=== PATIENT | male | born 1950 | race Caucasian/White ===

== ENCOUNTER 2017-04-28 01:35 | Emergency (ER) | payer MEDICARE, BC ==
[2017-04-28 02:11] VITALS: BP 159/96
--- NOTE | 2017-04-28 02:40 | EDM.PDOC ---
ED HPI GENERAL MEDICAL PROBLEM - General Chief Complaint: Cardiovascular Problem Stated Complaint: RAPID HEART RATE Time Seen by Provider: 04/28/17 02:36 Source of Information: Reports: Patient History Limitations: Reports: No Limitations - History of Present Illness INITIAL COMMENTS - FREE TEXT/NARRATIVE: History of present illness: [58-year-old male presenting concerned about his blood pressure. His blood pressure machine at home as long the pain around her wrist that was running high he did it several times became Anxious and then came in he doesn't have any complaints of chest pain or shortness of breath but is worried about his blood pressure. Ears blood pressure reading is acceptable is just on hydrochlorothiazide 12.5 mg per day and he has an appointment with his family care doctor who is an internal medicine doctor next week in [place]. He had been on atenolol as well but that was stopped because he does have some underlying asthma in his breathing has gotten better since the atenolol was stopped.] Review of systems: As per history of present illness and below otherwise all systems reviewed and negative. Past medical history: As per history of present illness and as reviewed below otherwise noncontributory. Surgical history: As per history of present illness and as reviewed below otherwise noncontributory. Social history: No reported history of drug or alcohol abuse. Family history: As per history of present illness and as reviewed below otherwise noncontributory. Physical exam: HEENT: Atraumatic, normocephalic, pupils reactive, negative for conjunctival pallor or scleral icterus, mucous membranes moist, throat clear, neck supple, nontender, trachea midline. Lungs: Clear to auscultation, breath sounds equal bilaterally, chest nontender. Heart: S1S2, regular, negative for clicks, rubs, or JVD. Abdomen: Soft, nondistended, nontender. Negative for masses or hepatosplenomegaly. Negative for costovertebral tenderness. Pelvis: Stable nontender. Genitourinary: Deferred. Rectal: Deferred. Extremities: Atraumatic, negative for cords or calf pain. Neurovascular unremarkable. Neuro: Awake, alert, oriented. Cranial nerves II through XII unremarkable. Cerebellum unremarkable. Motor and sensory unremarkable throughout. Exam nonfocal. Diagnostics: [] Therapeutics: [] Impression: [Hypertension] Plan: [Patient was reassured that his blood pressure was not in a dangerous range and that he can just rest assured that he'll be fine tonight. I did advise him to take his blood pressure machine into the clinic when he sees his doctor and check his readings against the ones that they get their and if they do not correlate perhaps he needs a different machine which they can help him with.] Definitive disposition and diagnosis as appropriate pending reevaluation and review of above. denies pain Pain Score (Numeric/FACES): 0 - Related Data Allergies Allergy/AdvReac Type Severity Reaction Status Date / Time atorvastatin calcium Allergy Rash Verified 11/11/15 18:07 [From Lipitor] fish oil Allergy Stomach Verified 11/11/15 18:07 Ache Latex, Natural Rubber Allergy Rash Verified 04/28/17 02:15 niacin Allergy Rash Verified 11/11/15 18:07 rosuvastatin calcium Allergy Rash Verified 11/11/15 18:07 [From Crestor] tamsulosin HCl [From Flomax] Allergy Rash Verified 11/11/15 18:07 Home Meds: Home Meds Allopurinol [Allopurinol] 200 mg PO DAILY 10/06/15 [History] Aspirin [Low Dose Aspirin EC] 162 mg PO DAILY 10/06/15 [History] Cetirizine HCl [Allergy Relief] 10 mg PO DAILY 10/06/15 [History] Cholecalciferol (Vitamin D3) [Vitamin D3] 2,000 unit PO DAILY 10/06/15 [History] Clotrimazole [Clotrimazole 1%] 15 gm .XX ASDIRECTED PRN 10/06/15 [History] LORazepam 1 mg PO ASDIRECTED PRN 10/06/15 [History] Nitroglycerin 0.4 mg SL ASDIRECTED PRN 10/06/15 [History] Omeprazole 20 mg PO DAILY 10/06/15 [History] Pravastatin [Pravachol] 20 mg PO BEDTIME 10/06/15 [History] Ubidecarenone [COQ-10] 60 mg PO DAILY 10/06/15 [History] hydrOXYzine HCl [Atarax] 25 mg PO Q6H PRN 10/06/15 [History] Acetaminophen [Tylenol Arthritis Pain] 1,300 mg PO ASDIRECTED 04/28/17 [History] Hydrochlorothiazide [Hydrochlorothiazide] 12.5 mg PO DAILY 04/28/17 [History] Ibuprofen 200 mg PO ASDIRECTED PRN 04/28/17 [History] Past Medical History HEENT History: Reports: Impaired Vision Cardiovascular History: Reports: CAD, High Cholesterol, Hypertension, [place], Stents Respiratory History: Reports: Asthma Gastrointestinal History: Reports: None Genitourinary History: Reports: Prostate Disorder, Retention, Urinary Other Genitourinary History: prostatitis Musculoskeletal History: Reports: Arthritis Other Musculoskeletal History: l shoulder surgery crushed socked 1985. 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 Psychiatric History: Reports: Anxiety Endocrine/Metabolic History: Reports: Obesity/BMI 30+ Hematologic History: Reports: None Immunologic History: Reports: None Oncologic (Cancer) History: Reports: None Dermatologic History: Reports: Urticaria - Infectious Disease History Infectious Disease History: Reports: Chicken Pox, Measles, Mumps, Rubella - Past Surgical History Head Surgeries/Procedures: Reports: None Cardiovascular Surgical History: Reports: Coronary Artery Stent Respiratory Surgical History: Reports: None GI Surgical History: Reports: Colonoscopy, Hernia, Inguinal, Polypectomy Male Surgical History: Reports: Vasectomy, Other (See Below) Endocrine Surgical History: Reports: None Neurological Surgical History: Reports: None Musculoskeletal Surgical History: Reports: Shoulder Surgery, Other (See Below) Other Musculoskeletal Surgeries/Procedures:: club foot surgically repaired right foot Oncologic Surgical History: Reports: None Social & Family History - Tobacco Use Smoking Status *Q: Never Smoker Second Hand Smoke Exposure: No - Caffeine Use Caffeine Use: Reports: None - Recreational Drug Use Recreational Drug Use: No ED ROS GENERAL - Review of Systems Review Of Systems: ROS reveals no pertinent complaints other than HPI. ED EXAM, GENERAL - Physical Exam Exam: See Below Course - Vital Signs Last Recorded V/S: Last Vital Signs Temp 37 C 04/28/17 02:10 Pulse 73 04/28/17 02:10 Resp 16 04/28/17 02:10 BP 159/96 H 04/28/17 02:10 Pulse Ox 96 04/28/17 02:10 Departure - Departure Time of Disposition: 02:39 Disposition: Home, Self-Care 01 Condition: Good Clinical Impression: Hypertension Qualifiers: Hypertension type: unspecified Qualified Code(s): I10 - Essential (primary) hypertension Referrals: PCP,None [Primary Care Provider] - Additional Instructions: I just want to remind you to take your blood pressure machine with you in to the clinic when you see your doctor and check your readings against the ones there getting to make sure that they correlate and if not perhaps a different machine would be better for you.
== END 2017-04-28 02:59 | disposition home or self-care (01) ==
LOC: JP.ED 01:35
DX: I10 Essential (primary) hypertension (principal); I25.2 Old myocardial infarction; I25.10 Atherosclerotic heart disease of native coronary artery without angina pectoris; E78.00 Pure hypercholesterolemia, unspecified; J45.909 Unspecified asthma, uncomplicated; M19.90 Unspecified osteoarthritis, unspecified site; F41.9 Anxiety disorder, unspecified; E66.9 Obesity, unspecified; Z68.30 Body mass index [BMI] 30.0-30.9, adult; Z95.5 Presence of coronary angioplasty implant and graft; Z98.52 Vasectomy status; Z98.890 Other specified postprocedural states; Z79.82 Long term (current) use of aspirin; Z79.899 Other long term (current) drug therapy; Z88.8 Allergy status to other drugs, medicaments and biological substances; Z91.018 Allergy to other foods; Z91.040 Latex allergy status
CPT/HCPCS: 99283

== ENCOUNTER 2017-09-03 07:14 | Emergency (ER) | payer MEDICARE, BC ==
[2017-09-03 07:28] VITALS: BP 172/77
--- NOTE | 2017-09-03 07:54 | EDM.PDOC ---
ED HPI GENERAL MEDICAL PROBLEM - General Chief Complaint: ENT Problem Stated Complaint: BLOODY NOSE Time Seen by Provider: 09/03/17 07:40 Source of Information: Reports: Patient History Limitations: Reports: No Limitations - History of Present Illness INITIAL COMMENTS - FREE TEXT/NARRATIVE: 67-year-old male with 2 episodes of right-sided epistaxis this morning. No trauma. Bleeding has again resolved. He is on Plavix. Onset: Sudden Duration: Hour(s): (Total bleeding time was over an hour and a half) Severity: Moderate - Related Data Allergies Allergy/AdvReac Type Severity Reaction Status Date / Time atorvastatin calcium Allergy Rash Verified 09/03/17 07:28 [From Lipitor] fish oil Allergy Stomach Verified 09/03/17 07:28 Ache Latex, Natural Rubber Allergy Rash Verified 09/03/17 07:28 niacin Allergy Rash Verified 09/03/17 07:28 rosuvastatin calcium Allergy Rash Verified 09/03/17 07:28 [From Crestor] tamsulosin HCl [From Flomax] Allergy Rash Verified 09/03/17 07:28 Home Meds: Home Meds Allopurinol [Allopurinol] 200 mg PO DAILY 10/06/15 [History] Aspirin [Low Dose Aspirin EC] 162 mg PO DAILY 10/06/15 [History] Cetirizine HCl [Allergy Relief] 10 mg PO DAILY 10/06/15 [History] Cholecalciferol (Vitamin D3) [Vitamin D3] 2,000 unit PO DAILY 10/06/15 [History] Clotrimazole [Clotrimazole 1%] 15 gm .XX ASDIRECTED PRN 10/06/15 [History] Nitroglycerin 0.4 mg SL ASDIRECTED PRN 10/06/15 [History] Omeprazole 20 mg PO DAILY 10/06/15 [History] Pravastatin [Pravachol] 20 mg PO BEDTIME 10/06/15 [History] Ubidecarenone [COQ-10] 60 mg PO DAILY 10/06/15 [History] hydrOXYzine HCl [Atarax] 25 mg PO Q6H PRN 10/06/15 [History] Acetaminophen [Tylenol Arthritis Pain] 1,300 mg PO ASDIRECTED 04/28/17 [History] Hydrochlorothiazide [Hydrochlorothiazide] 12.5 mg PO DAILY 04/28/17 [History] Ibuprofen 200 mg PO ASDIRECTED PRN 04/28/17 [History] Betamethasone Dipropionate [Diprosone 0.05% Crm] 1 applic TOP DAILY 09/03/17 [ History] Clopidogrel Bisulfate [Clopidogrel] 75 mg PO DAILY 09/03/17 [History] amLODIPine [Norvasc] 5 mg PO DAILY 09/03/17 [History] Past Medical History HEENT History: Reports: Impaired Vision Cardiovascular History: Reports: CAD, High Cholesterol, Hypertension, [place], Stents Respiratory History: Reports: Asthma Gastrointestinal History: Reports: None Genitourinary History: Reports: Prostate Disorder, Retention, Urinary Other Genitourinary History: prostatitis Musculoskeletal History: Reports: Arthritis Other Musculoskeletal History: l shoulder surgery crushed socked 1985. 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 Psychiatric History: Reports: Anxiety Endocrine/Metabolic History: Reports: Obesity/BMI 30+ Hematologic History: Reports: None Immunologic History: Reports: None Oncologic (Cancer) History: Reports: None Dermatologic History: Reports: Urticaria - Infectious Disease History Infectious Disease History: Reports: Chicken Pox, Mumps - Past Surgical History Cardiovascular Surgical History: Reports: Coronary Artery Stent Respiratory Surgical History: Reports: None GI Surgical History: Reports: Colonoscopy, Hernia, Inguinal, Polypectomy Male Surgical History: Reports: Vasectomy, Other (See Below) Endocrine Surgical History: Reports: None Neurological Surgical History: Reports: None Musculoskeletal Surgical History: Reports: Shoulder Surgery, Other (See Below) Other Musculoskeletal Surgeries/Procedures:: club foot surgically repaired right foot Oncologic Surgical History: Reports: None Social & Family History - Tobacco Use Smoking Status *Q: Former Smoker Used Tobacco, but Quit: Yes Month Tobacco Last Used: 14 years ago Second Hand Smoke Exposure: No - Caffeine Use Caffeine Use: Reports: None - Recreational Drug Use Recreational Drug Use: No ED ROS ENT - Review of Systems Review Of Systems: See Below Constitutional: Denies: Fever, Chills Respiratory: Denies: Shortness of Breath Cardiovascular: Denies: Chest Pain, Lightheadedness GI/Abdominal: Denies: Nausea, Vomiting Neurological: Denies: Headache ED EXAM, ENT - Physical Exam Exam: See Below Exam Limited By: No Limitations General Appearance: Alert, No Apparent Distress Nose: Other (Exam of the nares showed no active bleeding or evidence of recent bleeding) Mouth/Throat: Normal Inspection Respiratory/Chest: No Respiratory Distress Course - Vital Signs Last Recorded V/S: Last Vital Signs Temp 97.0 F 09/03/17 07:26 Pulse 98 09/03/17 07:26 Resp 18 09/03/17 07:26 BP 172/77 H 09/03/17 07:26 Pulse Ox 98 09/03/17 07:26 - Re-Assessments/Exams Free Text/Narrative Re-Assessment/Exam: 09/03/17 10:21 Patient was supplied with an external nasal pincer in case bleeding recurs, to apply external pressure. He is going to attend cardiac rehabilitation this morning as usual and return if bleeding recurs and is uncontrolled. Departure - Departure Time of Disposition: 08:03 Disposition: Home, Self-Care 01 Condition: Good Clinical Impression: Epistaxis - Discharge Information Instructions: Nosebleed, [id number] Referrals: Tee He MD [Primary Care Provider] - Forms: ED Department Discharge Care Plan Goals: Resume your regular activity and schedule, use external pressure if bleeding recurs and return to ER if unable to get bleeding controlled.
== END 2017-09-03 08:03 | disposition home or self-care (01) ==
LOC: JP.ED 07:14
DX: R04.0 Epistaxis (principal); I10 Essential (primary) hypertension; I25.10 Atherosclerotic heart disease of native coronary artery without angina pectoris; E78.00 Pure hypercholesterolemia, unspecified; Z87.891 Personal history of nicotine dependence; Z79.82 Long term (current) use of aspirin; Z79.02 Long term (current) use of antithrombotics/antiplatelets; Z79.899 Other long term (current) drug therapy; Z88.8 Allergy status to other drugs, medicaments and biological substances; Z91.040 Latex allergy status; Z91.013 Allergy to seafood
CPT/HCPCS: 99283